=== PATIENT | female | born 1975 | race Caucasian/White ===

== ENCOUNTER → 2017-01-17 | Outpatient (CLI) | payer BC ==
[2017-01-17 08:55] LABS: HEMOGLOBIN 12.2 gm/dl (12.3-15.3); RED BLOOD COUNT 4.23 M/UL (4.00-5.10); WHITE BLOOD COUNT 8.6 K/UL (4.5-11.0)
[2017-01-17 09:13] LABS: BUN/CREATININE RATIO 15 (0-10)
== END ==
LOC: LAB 08:00
PROVIDERS: Family Medicine
DX: I10 Essential (primary) hypertension (principal); I66.9 Occlusion and stenosis of unspecified cerebral artery; E53.8 Deficiency of other specified B group vitamins; E55.9 Vitamin D deficiency, unspecified
CPT/HCPCS: 36415; 80053; 80061; 82607; 84443; 85025

== ENCOUNTER 2020-10-11 17:41 | Emergency (ER) | payer BC, OTHER ==
[~2020-10-11 17:41] MED LIST: DITROPAN 5 MG TA5 MG PO; GLUCOPHAGE500 MG PO; HYDROCHLOROTHIA25 MG PO; IRON325 M1 PO; KEFLEX CAP 500500 MG PO; MACROBID 100 M100 MG PO; MYCOSTATIN POWD15 GM TOP; NORVASC 5 MG TAB5 MG PO; VITAMIN D31000 UNI1 PO; ZANTAC150 MG PO; ZESTRIL40 MG PO
[2020-10-12 00:13] LABS: HEMOGLOBIN 11.6 gm/dl (12.3-15.3); RED BLOOD COUNT 4.28 M/UL (4.00-5.10); WHITE BLOOD COUNT 15.5 K/UL (4.5-11.0)
[2020-10-12] MEDS ORDERED: IBUPROFEN800 MG PO (03:10)
[2020-10-12] MEDS ORDERED: OMNICEF 300 MG300 MG PO (03:10)
[2020-10-12] MEDS ORDERED: ZOFRAN 4 MG TAB4 MG PO (03:10)
== END 2020-10-12 03:30 | disposition home or self-care (01) ==
LOC: ER1 17:41
PROVIDERS: Emergency Medicine
DX: N39.0 Urinary tract infection, site not specified (principal); R51.9 Headache, unspecified; I10 Essential (primary) hypertension
CPT/HCPCS: 71045; 80053; 81001; 84484; 85025; 96365; 96375; 99284; J0696; J2270; J2405; Q9967

== ENCOUNTER → 2020-11-07 | Outpatient (CLI) | payer BC, OTHER ==
[~2020-11-07] MED LIST changes: +IBUPROFEN800 MG PO; +OMNICEF 300 MG300 MG PO; +ZOFRAN 4 MG TAB4 MG PO
== END ==
LOC: LAB 12:08
PROVIDERS: Internal Medicine Nephrology
DX: M32.9 Systemic lupus erythematosus, unspecified (principal); N17.9 Acute kidney failure, unspecified; D89.89 Other specified disorders involving the immune mechanism, not elsewhere classified; R76.8 Other specified abnormal immunological findings in serum; M25.50 Pain in unspecified joint
CPT/HCPCS: 80053; 82570; 84156; 85652; 86140; 86431

== ENCOUNTER → 2020-11-26 | Outpatient (CLI) | payer BC, OTHER ==
[2020-11-26 12:07] LABS: WHITE BLOOD COUNT 6.2 K/UL (4.5-11.0)
[2020-11-26 12:08] LABS: HEMOGLOBIN 13.9 gm/dl (12.3-15.3); RED BLOOD COUNT 5.08 M/UL (4.00-5.10)
[2020-11-27 10:12] LABS: CREATININE, URINE 91.3 mg/dL (Not Estab.)
== END ==
LOC: LAB 08:47
PROVIDERS: Family Medicine
DX: E11.9 Type 2 diabetes mellitus without complications (principal); I10 Essential (primary) hypertension; E78.5 Hyperlipidemia, unspecified; E53.8 Deficiency of other specified B group vitamins; D64.9 Anemia, unspecified
CPT/HCPCS: 36415; 80053; 80061; 82043; 82570; 82607; 82728; 83540; 83550; 85027; 85045

== ENCOUNTER → 2021-03-01 | Outpatient (CLI) | payer BC, OTHER ==
[2021-03-01 17:10] LABS: HEMOGLOBIN 12.3 gm/dl (12.3-15.3); RED BLOOD COUNT 4.25 M/UL (4.00-5.10); WHITE BLOOD COUNT 8.6 K/UL (4.5-11.0)
== END ==
LOC: LAB 16:09
PROVIDERS: Internal Medicine
DX: N18.2 Chronic kidney disease, stage 2 (mild) (principal); M05.79 Rheumatoid arthritis with rheumatoid factor of multiple sites without organ or systems involvement; D63.1 Anemia in chronic kidney disease; R76.8 Other specified abnormal immunological findings in serum
CPT/HCPCS: 36415; 80053; 82570; 84156; 85025; 85652; 86140

== ENCOUNTER → 2021-06-05 | Outpatient (CLI) | payer BC ==
[2021-06-05 17:42] LABS: HEMOGLOBIN 13.3 gm/dl (12.3-15.3); RED BLOOD COUNT 4.53 M/UL (4.00-5.10); WHITE BLOOD COUNT 10.1 K/UL (4.5-11.0)
== END ==
LOC: LAB 16:53
PROVIDERS: Internal Medicine
DX: Z51.81 Encounter for therapeutic drug level monitoring (principal); M05.79 Rheumatoid arthritis with rheumatoid factor of multiple sites without organ or systems involvement
CPT/HCPCS: 36415; 80053; 85025; 85652; 86140

== ENCOUNTER → 2021-07-05 | Outpatient (CLI) | payer BC | LOC: LAB 17:33 | PROVIDERS: Internal Medicine Nephrology | DX: N18.2 Chronic kidney disease, stage 2 (mild) (principal) | CPT/HCPCS: 80053; 82570; 84156 ==

== ENCOUNTER → 2021-09-19 | Outpatient (CLI) | payer BC | LOC: RAD 17:22 | DX: J20.9 Acute bronchitis, unspecified (principal) | CPT/HCPCS: 71046 ==

== ENCOUNTER → 2021-10-10 | Outpatient (CLI) | payer BC ==
[2021-10-11 06:12] LABS: A/G RATIO 1.3 (1.2-2.2); ALKALINE PHOSPHATASE, S 148 IU/L (44-121); ALT (SGPT) 26 IU/L (0-32); AST (SGOT) 20 IU/L (0-40); BILIRUBIN, TOTAL 0.4 mg/dL (0.0-1.2); BUN 19 mg/dL (6-24); BUN/CREATININE RATIO 17 (9-23); CALCIUM, SERUM 9.8 mg/dL (8.7-10.2); CARBON DIOXIDE, TOTAL 21 mmol/L (20-29); CHLORIDE, SERUM 101 mmol/L (96-106); CHOLESTEROL, TOTAL 136 mg/dL (100-199); CREATININE, SERUM 1.12 mg/dL (0.57-1.00); EGFR IF AFRICN AM 69 (>59); EGFR IF NONAFRICN AM 60 (>59); GLOBULIN, TOTAL 3.2 g/dL (1.5-4.5); GLUCOSE, SERUM 134 mg/dL (65-99); HDL CHOLESTEROL 32 mg/dL (>39); LDL CHOLESTEROL CALC 74 mg/dL (0-99); LDL/HDL RATIO 2.3 ratio (0.0-3.2); POTASSIUM, SERUM 4.3 mmol/L (3.5-5.2); PROTEIN, TOTAL, SERUM 7.4 g/dL (6.0-8.5); SODIUM, SERUM 140 mmol/L (134-144); T. CHOL/HDL RATIO 4.3 ratio (0.0-4.4); TRIGLYCERIDES 175 mg/dL (0-149); VITAMIN D, 25-HYDROXY 18.1 ng/mL (30.0-100.0)
== END ==
LOC: LAB 07:51
PROVIDERS: Family Medicine
DX: E55.9 Vitamin D deficiency, unspecified (principal); E78.5 Hyperlipidemia, unspecified; E11.9 Type 2 diabetes mellitus without complications; E53.8 Deficiency of other specified B group vitamins
CPT/HCPCS: 36415; 80053; 80061; 82607

== ENCOUNTER → 2021-10-10 | Outpatient (CLI) | payer BC ==
[2021-10-10 18:50] LABS: HEMOGLOBIN 13.7 gm/dl (12.3-15.3); RED BLOOD COUNT 4.71 M/UL (4.00-5.10); WHITE BLOOD COUNT 9.9 K/UL (4.5-11.0)
== END ==
LOC: LAB 17:30
PROVIDERS: Family Medicine
DX: R39.9 Unspecified symptoms and signs involving the genitourinary system (principal); E55.9 Vitamin D deficiency, unspecified; E78.5 Hyperlipidemia, unspecified; E11.9 Type 2 diabetes mellitus without complications; E53.8 Deficiency of other specified B group vitamins
CPT/HCPCS: 81001; 85027; 87077; 87086; 87186

== ENCOUNTER → 2021-11-30 | Outpatient (CLI) | payer BC | LOC: LAB 09:55 | PROVIDERS: Internal Medicine Nephrology | DX: N18.2 Chronic kidney disease, stage 2 (mild) (principal) | CPT/HCPCS: 36415; 80053; 82570; 84156 ==

== ENCOUNTER → 2022-01-02 | Outpatient (CLI) | payer BC | LOC: LAB 17:25 | DX: N39.0 Urinary tract infection, site not specified (principal) | CPT/HCPCS: 81001; 87086 ==

== ENCOUNTER → 2022-01-17 | Outpatient (CLI) | payer BC | LOC: KOH-I 08:00 | DX: R31.9 Hematuria, unspecified (principal); K76.0 Fatty (change of) liver, not elsewhere classified; K57.30 Diverticulosis of large intestine without perforation or abscess without bleeding | CPT/HCPCS: 74176 ==

== ENCOUNTER → 2022-01-24 | Outpatient (CLI) | payer BC ==
[2022-01-25 10:16] LABS: CREATININE, URINE 128.1 mg/dL (Not Estab.)
== END ==
LOC: LAB 07:35
PROVIDERS: Family Medicine
DX: E11.9 Type 2 diabetes mellitus without complications (principal); E55.9 Vitamin D deficiency, unspecified; E78.5 Hyperlipidemia, unspecified; E53.8 Deficiency of other specified B group vitamins
CPT/HCPCS: 36415; 80053; 80061; 82043; 82570; 82607; 83735; 84443

== ENCOUNTER 2022-03-21 20:43 | Emergency (ER) | payer BC ==
[2022-03-21 21:12] LABS: HEMOGLOBIN 14.2 gm/dl (12.3-15.3); RED BLOOD COUNT 4.77 M/UL (4.00-5.10); WHITE BLOOD COUNT 10.7 K/UL (4.5-11.0)
[2022-03-22] MEDS ORDERED: CEFUROXIME500 MG PO (02:08)
[2022-03-22] MEDS ORDERED: ZOFRAN ODT 4 MG4 MG PO (02:08)
[2022-03-22] MEDS ORDERED: CEFPODOXIME PR200 MG PO (02:12)
== END 2022-03-22 02:39 | disposition home or self-care (01) ==
LOC: ER1 20:43
PROVIDERS: Physician Assistant Medical
DX: N10 Acute pyelonephritis (principal); N39.0 Urinary tract infection, site not specified; E11.22 Type 2 diabetes mellitus with diabetic chronic kidney disease; I12.0 Hypertensive chronic kidney disease with stage 5 chronic kidney disease or end stage renal disease; N18.6 End stage renal disease
CPT/HCPCS: 80053; 81001; 85025; 96361; 96374; 96375; 99284; J0696; J2270; J2405

== ENCOUNTER → 2022-05-12 | Outpatient (CLI) | payer BC ==
[~2022-05-12] MED LIST changes: +CEFPODOXIME PR200 MG PO; +CEFUROXIME500 MG PO; +ZOFRAN ODT 4 MG4 MG PO
== END ==
LOC: LAB 10:06
DX: N39.0 Urinary tract infection, site not specified (principal)
CPT/HCPCS: 81001